=== PATIENT | male | born 1975 | race Caucasian/White ===

== ENCOUNTER 2024-08-12 15:39 | Emergency (ER) | payer MEDICAID ==
[~2024-08-12] VITALS: Ht 175.3 cm; Wt 95.3 kg
[2024-08-12] MEDS ORDERED: IBUPROFEN 600 MG TABLET ONE (17:22)
[2024-08-12] MEDS: IBUPROFEN 600 MG TABLET PO ONE (17:30)
[2024-08-12 18:22] VITALS: BP 128/84; TEMP 98.2; O2SAT 97
== END 2024-08-12 18:41 | disposition home or self-care (01) ==
LOC: ER 16:15
DX: M25.571 Pain in right ankle and joints of right foot (principal); M25.471 Effusion, right ankle; R25.1 Tremor, unspecified; X50.1XXA Overexertion from prolonged static or awkward postures, initial encounter; Y93.89 Activity, other specified; Y92.89 Other specified places as the place of occurrence of the external cause; Y99.8 Other external cause status
CPT/HCPCS: 73610-TC